=== PATIENT | female | born 1960 | race African-American/Black ===

== ENCOUNTER 2016-10-31 08:41 | Emergency (ER) | payer MEDICAID | END 2016-10-31 14:00 | disposition home or self-care (01) | LOC: ER 08:41 | DX: N30.01 Acute cystitis with hematuria (principal); R11.2 Nausea with vomiting, unspecified; N18.9 Chronic kidney disease, unspecified; Z79.82 Long term (current) use of aspirin; Z79.899 Other long term (current) drug therapy; F17.210 Nicotine dependence, cigarettes, uncomplicated | CPT/HCPCS: 36415; 80053; 81001; 83690; 85025; 87088 ==